=== PATIENT | female | born 1990 | race African-American/Black ===

== ENCOUNTER 2022-11-10 03:27 | Inpatient (IN) ==
[2022-11-10] MEDS ORDERED: LANOLIN 50% CREAM 0.3 OZ TUBE TOP PRN (03:35)
[2022-11-10] MEDS ORDERED: BISACODYL 10 MG SUPP RECTAL PRN (03:35)
[2022-11-10] MEDS ORDERED: BENZOCAINE 20%/MENTHOL 0.5% SPRAY 56 GM CAN TOP PRN (03:35)
[2022-11-10] MEDS ORDERED: ACETAMINOPHEN 325 MG TABLET PO PRN (03:35)
[2022-11-10] MEDS ORDERED: DIPH/TET/ACEL PERT BOOSTER VACCINE 0.5 ML VIAL IM ONE (03:35)
[2022-11-10] MEDS ORDERED: WITCH HAZEL PADS 100/JAR TOP PRN (03:35)
[2022-11-10] MEDS ORDERED: ONDANSETRON 4 MG/2 ML VIAL IV PRN (03:35)
[2022-11-10] MEDS ORDERED: HYDROCORTISONE 2.5% RECTAL CREAM 30 GM TUBE TOP PRN (03:35)
[2022-11-10] MEDS ORDERED: MEASLES/MUMPS/RUBELLA VACCINE 0.5 ML VIAL SUBCUT ONE (03:35)
[2022-11-10] MEDS ORDERED: oxyCODONE/ACETAMINOPHEN 5-325 MG TABLET PO PRN ×2 (03:35)
[2022-11-10] MEDS ORDERED: RHO(D) IMMUNE GLOBULIN 300 MCG SYRINGE IM ONE (03:35)
[2022-11-10] MEDS ORDERED: BUTORPHANOL 2 MG/ML VIAL IV ONE (03:48)
[2022-11-10] MEDS ORDERED: miSOPROStoL 200 MCG TABLET RECTAL ONE (04:00)
[2022-11-10] MEDS ORDERED: LACTATED RINGERS 1,000 ML IV SCH (04:00)
[2022-11-10 04:59] LABS: Basophils # 0.1 10*3/uL (0.0-0.2); Basophils % 0.3 % (0.0-0.8); Eosinophils # 0.1 10*3/uL (0.0-0.87); Eosinophils % 0.8 % (0.00-10.9); Immature Granulocytes % 0.8 %; Immature Granulocytes Absolute 0.13 #; Lymphocytes % 12.8 % (21.3-54.2); Mean Corpuscular HGB Conc 31.4 GM/DL (32-36); Mean Corpuscular Volume 81.8 FL (87-102); Mean Platelet Volume 11.6 FL (9.6-12.0); Monocytes % 6.1 % (1.7-12.7); Neutrophils % 79.2 % (38.7-73.9); Platelet Count 275 T/CUMM (130-400); Red Blood Count 4.28 MC/CUMM (3.8-5.5); Red Cell Distribution Width 15.3 % (9.3-17.3); White Blood Count 15.78 T/CUMM (4-12)
[2022-11-10] MEDS: OXYTOCIN/LR 20 UNIT/1,000 ML BAG IV PRN ×2 (05:12→14:35)
[2022-11-10 05:20] LABS: Albumin 2.3 G/DL (3.4-5.0); Bilirubin,Total 0.4 MG/DL (0.20-1.00); Osmolality,Calculated 276.5 MOS/KG (273-304); Potassium 3.8 MMOL/L (3.5-5.1); Total Protein 7.1 G/DL (6.4-8.2)
[2022-11-10] MEDS: DOCUSATE SODIUM 100 MG CAPSULE PO SCH ×2 (09:56→21:03)
[2022-11-10] MEDS: MULTIVITAMIN (PRENATAL) TABLET PO SCH (09:56)
[2022-11-10] MEDS: IBUPROFEN 800 MG TABLET PO PRN ×2 (09:57→21:03)
[2022-11-10] MEDS ORDERED: OXYTOCIN/LR 20 UNIT/1,000 ML BAG IV ONE (14:35)
[2022-11-11 06:05] LABS: Basophils % 0.4 % (0.0-0.8); Eosinophils # 0.3 10*3/uL (0.0-0.87); Eosinophils % 2.4 % (0.00-10.9); Hematocrit 31.2 VOL% (35.7-47.0); Hemoglobin 9.7 GM/DL (12.0-16.0); Immature Granulocytes % 0.7 %; Immature Granulocytes Absolute 0.08 #; Lymphocytes # 3.4 10*3/uL (1.4-4.0); Lymphocytes % 31.6 % (21.3-54.2); Mean Corpuscular HGB Conc 31.1 GM/DL (32-36); Mean Corpuscular Volume 82.5 FL (87-102); Mean Platelet Volume 11.7 FL (9.6-12.0); Monocytes % 9.3 % (1.7-12.7); Neutrophils % 55.6 % (38.7-73.9); Platelet Count 246 T/CUMM (130-400); Red Blood Count 3.78 MC/CUMM (3.8-5.5); Red Cell Distribution Width 15.5 % (9.3-17.3)
[2022-11-11 07:39] VITALS: BP 108/60
[2022-11-11] MEDS: MULTIVITAMIN (PRENATAL) TABLET PO SCH (08:46)
[2022-11-11] MEDS: DOCUSATE SODIUM 100 MG CAPSULE PO SCH (08:46)
== END 2022-11-11 13:38 | disposition home or self-care (01) | DRG 807 ==
LOC: N.LD 03:27 → N.OB 08:10
PROVIDERS: ADMIT Specialist; ATTEND Specialist